=== PATIENT | female | born 1950 | race Caucasian/White ===

== ENCOUNTER 2019-09-27 14:56 | Emergency (ER) | payer MEDICARE ==
--- NOTE | 2019-09-27 15:56 | RAD ---
CHEST 2 VIEWS: HISTORY: Cough. FINDINGS: Mild hyperinflation and chronic lung changes. Heart size is within normal limits. Biapical pleural thickening and small left apical bullae. Foci of changes of the cervicothoracic junction with anteri or metal plate and screws. Old granulomatous disease. No confluent lobar pneumonia, acute edema, or other acute process. IMPRESSION: Mild hyperinflation and chronic lung changes. No evidence for confluent pneumonia or other acute pro cess. POS: [facility]
[2019-09-27 16:07] LABS: Bilirubin Negative (Negative); Blood, Urine Negative (Negative); Clarity Clear (Clear); Glucose, Urine (Dipstick) Negative (Negative); Leukocyte Negative (Negative); Nitrite Negative (Negative); Protein, Urine (Dipstick) Negative (Neg-Trace); Urobilinogen 0.2 mg/dL (Less than 2)
[2019-09-27 16:36] LABS: ALT (SGPT) 18 U/L (8-55); AST (SGOT) 33 U/L (5-34); Albumin 3.8 g/dL (3.4-4.8); Alkaline Phosphatase 92 U/L (40-110); Anion Gap 14 mmol/L (10-20); Anisocytosis SLIGHT = 6-15 cells (100X) (0-5/hpf); BUN (Urea Nitrogen) 10 mg/dL (9.8-20.1); Band 3 % (5-11); Bilirubin, Total 0.4 mg/dL (0.2-1.2); Calc. Creatinine Clearance 0 mL/min (70-130); Calcium 8.3 mg/dL (7.8-10.44); Carbon Dioxide 26 mmol/L (23-31); Chloride 101 mmol/L (98-107); Eosinophils 1 % (0-10); Estimated GFR-MDRD 73; Glucose 94 mg/dL (80-115); Hemoglobin 14.3 g/dL (12.0-16.0); Lipase 17 U/L (8-78); Lymphocytes 15 % (21-51); MDiff Complete? YES; Macrocytosis SLIGHT = 6-15 cells (100X) (0-5/hpf); Mean Corpuscular HGB CONC 31.2 g/dL (32.0-36.0); Mean Platelet Volume 8.8 fL (7.4-10.4); Monocytes 5 % (0-10); Neutrophil 76 % (42-75); Platelet Count 151 thou/uL (130-400); Platelet Morphology Comment Appears Adequate; Potassium 3.5 mmol/L (3.5-5.1); Protein, Total 6.8 g/dL (6.0-8.3); RBC Distribution Width 11.8 % (11.5-14.5); Red Blood Cell (RBC) Count 4.34 mill/uL (4.20-5.40); Sodium 137 mmol/L (136-145); White Blood Cell (WBC) Count 3.3 thou/uL (4.8-10.8)
[2019-09-27] MEDS ORDERED: methylPREDNISolone Sod Succ/PF 125 MG/2 ML VIAL ONE (17:57)
[2019-09-27] MEDS ORDERED: Azithromycin 500 MG VIAL ONE (17:57)
[2019-09-27] MEDS ORDERED: Ibuprofen 600 MG TAB ONE (18:10)
[2019-09-27] MEDS ORDERED: Phenergan/Codeine 10-6.25mg/5ml UDCUP ONE (18:13)
== END 2019-09-28 07:55 | disposition home or self-care (01) ==
LOC: MADERS 14:56
DX: J44.1 Chronic obstructive pulmonary disease with (acute) exacerbation (principal); I25.10 Atherosclerotic heart disease of native coronary artery without angina pectoris; I10 Essential (primary) hypertension; G43.909 Migraine, unspecified, not intractable, without status migrainosus; F17.210 Nicotine dependence, cigarettes, uncomplicated
CPT/HCPCS: 71046; 80053; 81003; 83605; 83690; 83880; 84484; 85025; 87804; 93005; 96365; 96375; J0456; J2930; J7620

== ENCOUNTER 2021-04-09 09:14 | Outpatient (CLI) | payer MEDICARE ==
[2021-04-09 09:51] LABS: #Basophils 0.1 thou/uL (0.0-0.2); #Eosinphils 0.4 thou/uL (0.0-0.7); #Lymphocytes 1.9 thou/uL (1.20-3.40); #Monocytes 0.8 thou/uL (0.11-0.59); #Neutrophils 3.2 thou/uL (1.40-6.50); %Basophils 2.2 % (0.0-1.0); %Eosinophils 5.5 % (0.0-10.0); %Lymphocytes 30.4 % (21.0-51.0); %Monocytes 11.7 % (0.0-10.0); %Neutrophils 50.3 % (42.0-75.0); Hemoglobin 15.6 g/dL (12.0-16.0); Mean Corpuscular HGB CONC 31.9 g/dL (32.0-36.0); Mean Corpuscular Hemoglobin 34.5 pg (27.0-31.0); Mean Corpuscular Volume 108.2 fL (78.0-98.0); Mean Platelet Volume 8.1 fL (7.4-10.4); Platelet Count 221 thou/uL (130-400); RBC Distribution Width 12.4 % (11.5-14.5); Red Blood Cell (RBC) Count 4.52 mill/uL (4.20-5.40); White Blood Cell (WBC) Count 6.4 thou/uL (4.8-10.8)
[2021-04-09 09:58] LABS: ALT (SGPT) 17 U/L (8-55); AST (SGOT) 20 U/L (5-34); Albumin 4.2 g/dL (3.4-4.8); Alkaline Phosphatase 97 U/L (40-110); Anion Gap 14 mmol/L (10-20); BUN (Urea Nitrogen) 13 mg/dL (9.8-20.1); Bilirubin, Total 0.7 mg/dL (0.2-1.2); Calc. Creatinine Clearance 0 mL/min (70-130); Calcium 9.1 mg/dL (7.8-10.44); Carbon Dioxide 26 mmol/L (23-31); Cardiac Risk 2.1 (Less than 4.5); Chloride 104 mmol/L (98-107); Cholesterol 217 mg/dl (< 200 Desired); Globulin 3.2 g/dL (2.4-3.5); Glucose 116 mg/dL (80-115); HDL Cholesterol 102 mg/dL (>60 Neg Risk); LDL Cholesterol, Calculated 93 mg/dL; Potassium 3.8 mmol/L (3.5-5.1); Protein, Total 7.4 g/dL (5.8-8.1); Sodium 140 mmol/L (136-145); Triglycerides 111 mg/dL (Less than 150)
[2021-04-09 16:50] LABS: Hemoglobin A1c 4.6 % (4.0-6.0)
== END 2021-04-09 09:15 | disposition home or self-care (01) ==
LOC: MADLAB 09:14
PROVIDERS: ATTEND Family Medicine
DX: Z13.9 Encounter for screening, unspecified (principal); M25.562 Pain in left knee; M25.552 Pain in left hip; M47.816 Spondylosis without myelopathy or radiculopathy, lumbar region; I71.4 Abdominal aortic aneurysm, without rupture; M17.12 Unilateral primary osteoarthritis, left knee
CPT/HCPCS: 36415; 72100; 80053; 80061; 83036; 84443; 85025

== ENCOUNTER 2024-09-06 11:43 | Emergency (ER) | payer MEDICARE ==
[~2024-09-06 11:43] MED LIST: Iopamidol 370 76% 100 ML VIAL ONE
[2024-09-06 12:46] LABS: ALT (SGPT) 56 U/L (8-55); AST (SGOT) 82 U/L (5-34); Albumin 2.2 g/dL (3.4-4.8); Alkaline Phosphatase 134 U/L (40-110); Anion Gap 13 mmol/L (10-20); BUN (Urea Nitrogen) 32 mg/dL (9.8-20.1); Bilirubin, Total 0.6 mg/dL (0.2-1.2); Calc. Creatinine Clearance 0 mL/min (70-130); Calcium 8.3 mg/dL (7.8-10.44); Carbon Dioxide 23 mmol/L (23-31); Chloride 101 mmol/L (98-107); Estimated GFR 55; Globulin 3.5 g/dL (2.4-3.5); Glucose 128 mg/dL (83-110); Lipase 63 U/L (8-78); Potassium 3.3 mmol/L (3.5-5.1); Protein, Total 5.7 g/dL (5.8-8.1); Sodium 134 mmol/L (136-145)
[2024-09-06 12:51] LABS: Hematocrit 39.8 % (36.0-47.0); Hemoglobin 12.9 g/dL (12.0-16.0); Mean Corpuscular HGB CONC 32.3 g/dL (32.0-36.0); Mean Corpuscular Hemoglobin 30.7 pg (27.0-31.0); Mean Corpuscular Volume 95.2 fl (78.0-98.0); Mean Platelet Volume 8.9 fL (7.4-10.4); Platelet Count 160 10x3/uL (130-400); RBC Distribution Width 11.7 % (11.5-14.5); Red Blood Cell (RBC) Count 4.18 mill/uL (4.20-5.40); White Blood Cell (WBC) Count 12.2 10x3/uL (4.8-10.8)
[2024-09-06] MEDS ORDERED: Sodium Chloride 0.9% 1,000 ML ONE (12:54)
[2024-09-06 13:02] LABS: Hypochromia SLIGHT = 6-15 cells (100X) (0-5/hpf); Lymphocytes 2 % (21-51); MDiff Complete? YES; Manual Diff?? YES; Monocytes 12 % (0-10); Neutrophil 84 % (42-75); Platelet Adequacy Comment Appears Adequate; Reactive Lymphocytes 2 % (0-10)
[2024-09-06 14:48] LABS: Bilirubin Negative (Negative); Blood, Urine Small (Negative); Clarity Slightly Cloudy (Clear); Glucose, Urine (Dipstick) Negative (Negative); Ketone, Urine Negative (Negative); Leukocyte Moderate (Negative); Nitrite Positive (Negative); Protein, Urine (Dipstick) 30 mg/dL (Neg-Trace)
[2024-09-06 14:55] LABS: Bacteria/HPF 2+ HPF (None Seen); CAUTI Indications for Culture Pelvic or flank pain; Squamous Epithelial 0-3 HPF (0-3); WBC/HPF Greater Than 50 HPF (0-3)
[2024-09-06 14:56] LABS: Urine Culture Reflex Yes Yes
[2024-09-06] MEDS ORDERED: Sodium Chloride 0.9% 500 ML ONE (17:07)
[2024-09-06] MEDS ORDERED: cefTRIAXone (ROCEPHIN) 1 GM VIAL ONE (17:07)
[2024-09-06] MEDS ORDERED: Sodium Chloride 0.9% 100 ML ONE (17:07)
[2024-09-06] MEDS ORDERED: Promethazine HCl 25 MG/ML VIAL ONE (18:23)
== END 2024-09-06 20:04 | disposition short-term general hospital (02) ==
LOC: MADERS 11:43
DX: N39.0 Urinary tract infection, site not specified (principal); R19.7 Diarrhea, unspecified; K76.89 Other specified diseases of liver; R53.1 Weakness; R11.2 Nausea with vomiting, unspecified; I10 Essential (primary) hypertension; F17.210 Nicotine dependence, cigarettes, uncomplicated; Z79.899 Other long term (current) drug therapy; Z79.82 Long term (current) use of aspirin
CPT/HCPCS: 74177; 80053; 81001; 83605; 83690; 83735; 85025; 87077; 87086; 87186; J0696; J2550; J7030 ×2; Q9967; 96361; 96365; 96375